=== PATIENT | male | born 1955 | race African-American/Black ===

== ENCOUNTER 2016-10-23 07:01 | Observation (INO) | payer OTHER ==
--- NOTE | 2016-10-23 07:04 | PDOC ---
History of Present Illness - General Chief Complaint: CVA/TIA Stated Complaint: WEAKNESS,DIZZY, HX STROKE Time Seen by Provider: 10/23/16 07:04 History Source: Patient Exam Limitations: No Limitations - History of Present Illness Initial Comments: 10/23/16 07:18 60y F hx of htn, hl, cva sp TPA presents with concern for stroke. The patient felt fine this weekend, and he woke up at approx 6am, and tookhis meds, he felt alittle nauseus, mild L hand weakness, and noticed that he stumbled this morning. The pt denies any other associated headache, vision changes, palpitations, cp, abd pain, back pain, neck pain. The ptnotes the symptoms were better by the time he arrived and his examination upon arrival seemedr esolved. The patient denies any recent illness, feve/chills, diarrhea, dysuria. pt took 81mg ASA this morning PMD: [email or web address] Past History - Past Medical History Allergies/Adverse Reactions: Allergies Allergy/AdvReac Type Severity Reaction Status Date / Time No Known Allergies Allergy Verified 06/09/16 07:10 Home Medications: Ambulatory Orders Aspirin [ASA -] 81 mg PO PRN 06/09/16 Losartan 50Mg/Hctz 12.5MG [Hyzaar -] 1 tab PO DAILY 06/09/16 Atorvastatin Ca [Lipitor] 10 mg PO HS 10/23/16 Finasteride 5 mg PO DAILY 10/23/16 Vitamin D - 50,000 PO WEEKLY 10/23/16 Anemia: No Asthma: No Cancer: No Cardiac Disorders: No CVA: No COPD: No CHF: No Dementia: No Diabetes: No GI Disorders: No Disorders: No (FREQUENCY) HTN: No Hypercholesterolemia: No Liver Disease: No Seizures: No Thyroid Disease: No - Surgical History Abdominal Surgery: No Appendectomy: No Cardiac Surgery: No Cholecystectomy: No Lung Surgery: No Neurologic Surgery: No Orthopedic Surgery: No - Psycho/Social/Smoking Cessation Hx Anxiety: No Suicidal Ideation: No Smoking History: Never smoked Have you smoked in the past 12 months: No Hx Alcohol Use: No Drug/Substance Use Hx: No Substance Use Type: None Hx Substance Use Treatment: No Review of Systems - Review of Systems Able to Perform ROS?: Yes Comments:: 10/23/16 07:22 Constitutional - no reported Fever, Chills, HEENT: no reported vision changes, sore throat Respiratory: no reported cough, sob, hemoptysis Cardiac: no reported chest pain, palpitations, light headedness, leg swelling Abd/GI: no reported abd pain, nausea, vomiting, blood per rectum, melena, diarrhea : no reported dysuria, frequency, discharge Musculskelatal - no reported back pain, joint swelling skin - no reported bruising, erythema, rash neurological: +left arm weakness, no reported headache, numbness, focal weakness , tingling, ataxia, hematologic: no reported anemia, easy bruising, easy bleeding *Physical Exam - Physical Exam Comments: 10/23/16 07:24 GENERAL: The patient is awake, alert, and fully oriented, Nontoxic - in no acute distress. HEAD: Normocephalic, atraumatic. EYES: extraocular movements intact, sclera anicteric, conjunctiva clear. ENT: Normal voice, Moist mucous membranes. NECK: Normal range of motion, supple LUNGS: Breath sounds equal, clear to auscultation bilaterally. No wheezes, no rhonchi, no rales. HEART: Regular rate and rhythm, normal S1 and S2 without murmur, rub or gallop. ABDOMEN: Soft, nontender, normoactive bowel sounds. No guarding, no rebound. . No CVA tenderness EXTREMITIES: Normal range of motion, no edema. No clubbing or cyanosis. No cords, erythema, or tenderness. NEUROLOGICAL: No facial assymetry, Normal speech, PSYCH: Normal mood, normal affect. SKIN: Warm, Dry, normal turgor, NEURO: Mental status: The patient is oriented x3. Cranial nerves: Cranial nerves II through XII are intact Motor: The upper extremities are 5 over 5 in all muscle groups. The lower extremities are 5 over 5 in all muscle groups. Negative pronator drift Sensation: Sensation is intact to light touch throughout. romberg negative Cerebellar: Rwapko-goqhrd-sxmd is normal in both upper extremities. Heel-knee- santos is normal in both lower extremities. rapid alternating movements are normal. Reflexes: 2+ and symmetric in the upper and lower extremities. Gait: Normal. Heel and toe walking are normal. Tandem gait is normal. NIH Stroke Scale - Last Known Well Date/Time & Onset Date Last Known Well: 10/23/16 Time Last Known Well: 06:00 - Initial Evaluation Level of consciousness: Alert Ask patient the month and their age: Answers both correctly Ask patient to open & close eyes; make fist and let go: Obeys both correctly Best gaze (horizontal eye movement): Normal Visual field testing: No visual field loss Facial paresis (Show teeth/raise eyebrows/close eyes tight): Normal symmetrical movement Motor Function: Left Arm: Normal Motor Function: Right Arm: Normal (extends arm 90 (or 45) degrees for 10 seconds without drift Motor Function: Left Leg: Normal (extends leg 30 degrees for 5 seconds without drift) Motor Function: Right Leg: Normal (extends leg 30 degrees for 5 seconds without drift) Limb Ataxia: No ataxia Sensory(Use pinprick test arms,legs,trunk,face/side to side): Normal Best language (Describe picture, name items, read sentences): No Aphasia Dysarthria (read several words): Normal articulation Extinction and Inattention: No abnormality - Total Score NIH Stroke Scale Score: 0 tPA Exclusion Checklist 0-3hr - Time Elapsed Date last known well: 10/23/16 Time last known well: 06:00 Elaspsed time: 1 Day(s) and 3 Hour(s) and 14 Minutes - Thrombolytic Therapy Candidate Is the patient eligible for Thrombolytic Therapy?: No - Relative Exclusion Criteria 0-3h Rapid improvement: Yes - Ineligibility reason(s) Reasons No tPA given: See reason(s) noted above Heart Score/ECG Review - ECG Impressions Comment:: 10/23/16 07:25 Twelve-lead EKG was performed and reviewed by me. There is normal sinus rhythm with a normal rate. Rate of 69 The axis is normal. The intervals are normal. There is normal R wave progression There are no ST or T wave abnormalities. Critical Care Time/MDM Note - Medical Decision Making Note: 10/23/16 07:25 60yM hx of dm, hl, htn, cva s/p tpa presents with concern for posible stroke like symptmos with waekness/nausea after he took meds this morning that resolved by the time he go to the ED. pts exam unremarkable and NIHSS is approx 0 not TPA candidate due to rapidlyimproving symptoms pt noted tachycardic on arrival mildly hypertensive head ct/stroke workup initiated ekg to r/o arrythmia pt placed on desk monitor will give ASA if ct head negative 10/23/16 08:[address] negativefor acute cva or changes, but +chronic right sided changes/cva labs reviewed noted for mild hypomagnesemia, hypokalemia will place in observation for suspected TIA pt given ASA, k and mg repleted case dw dr. benson, requests observation under hospitalist service as she does not admit to [facility] pts neurologist from month Case discussed in detail with admitting physician including history, physical exam and ancillary studies. Admitting physician has assumed care for the patient, will follow all pending diagnostics and will complete the evaluation and treatment. 10/23/16 09:[address] Mares (Neuro) - pts neurologist is dr. Villanueva ([facility]) will see pt later today CRITICAL CARE DOCUMENTATION: I spent ~35 minutes of Critical Care time, excluding separately billable procedures, involving high complexity decision making to assess, manipulate and support vital system function(s) to treat single or multiple vital organ system failure and/or to prevent further life threatening deterioration of the patient' s condition. Discharge Disposition - Diagnosis Hypokalemia, Hypomagnesemia TIA (transient ischemic attack) Qualifiers: Transient cerebral ischemia type: unspecified Qualified Code(s): G45.9 - Transient cerebral ischemic attack, unspecified - Discharge Dispostion Admit: Yes
[2016-10-23 07:31] LABS: BASOPHIL 2.5 % (0-2.0); EOSINOPHIL 1.8 % (0-4.5); MCHC 33.2 g/dl (32.0-35.9); MEAN CELL VOLUME 93.3 fl (80-96); MEAN PLT VOLUME 8.7 fl (7.5-11.1); NEUTROPHILS 64.2 % (42.8-82.8); PLATELET COUNT 318 K/MM3 (134-434); RDW 13.4 % (11.9-15.9); WHITE BLOOD COUNT 7.1 K/mm3 (4.0-10.8)
[2016-10-23 07:38] LABS: INR 1.12 (0.82-1.09); PROTHROMBIN TIME (PATIENT) 12.5 SEC (10.2-13.0)
[2016-10-23 07:39] LABS: ALBUMIN 4.1 g/dl (3.5-5.0); ALK PHOS 65 U/L (32-92); ANION GAP 7 (8-16); BILIRUBIN,TOTAL 0.6 mg/dl (0.2-1.0); CO2 30 mmol/L (22-28); CREATININE 1.5 mg/dl (0.6-1.3); GLUCOSE,RANDOM 115 mg/dl (74-106); MAGNESIUM 1.7 mg/dL (1.8-2.4); PHOSPHOROUS 3.3 mg/dl (2.5-4.6); SGOT/AST 27 U/L (10-42); SGPT/ALT 47 U/L (10-40); TOT PROT 7.2 g/dl (6.4-8.3)
[2016-10-23] MEDS ORDERED: MAGNESIUM SULF 50% (8.12 MEQ/2 ML-1 GM VIAL) IVPB ONE (08:04)
[2016-10-23] MEDS ORDERED: POTASSIUM CHLORIDE TABS 20 MEQ TABLET.ER (FP) PO ONE ×2 (08:04→08:26)
[2016-10-23] MEDS ORDERED: ASPIRIN 81 MG CHEWABLE TABLETS PO ONE (08:25)
[2016-10-23] MEDS ORDERED: ASPIRIN 81 MG CHEWABLE TABLETS ONE (08:36)
[2016-10-23 09:13] LABS: PH,URINE 6.5 (4.5-8); URINE APPEARANCE Clear; URINE BILIRUBIN Negative (NEGATIVE); URINE GLUCOSE (UA) Negative (NEGATIVE); URINE KETONE Negative (NEGATIVE); URINE LEUK ESTERASE Negative (NEGATIVE); URINE NITRITE Negative (NEGATIVE); URINE PROTEIN Negative (NEGATIVE); URINE UROBILINOGEN 0.2 E.U/dl (0.2-1.0)
[2016-10-23 09:15] LABS: URINE BLOOD TRACE (NEGATIVE); URINE COLOR YELLOW
[2016-10-23 10:18] LABS: URINE RBC 0-3 /hpf (0-3)
[2016-10-23 10:19] LABS: URINE WBC 0-3 (3-5)
[2016-10-23 10:23] LABS: THYROID STIMULATING HORMONE 1.95 uIU/ml (0.358-3.74)
[2016-10-23 10:30] LABS: URINE MARIJUANA THC NEGATIVE ng/ml (CUTOFF=50)
--- NOTE | 2016-10-23 10:54 | HP ---
[id number] Dr Walden ([facility]) Ophthalmic Surgical Assistant: Dr Hallman HISTORY OF PRESENT ILLNESS: patient is a 60 y/o female with a past medical history of HTN, BPH, hyperlipidemia, CVA (05/26) s/p TPA. Patient reports that he awoke today (10/23) at 0600 and after taking his AM medications, he was ambulating at home. Upon ambulating he feel nausea, with mild left arm weakness and unsteady gait. As a result, he sought evaluation in the emergency department. Patient reports he symptoms resolved soon after arrival. In addition, patient has a history of a CVA in 05/26, was evaluated at this hospital's emergency department given TPA and transferred to [facility]. He reports a one week at [facility], a KRISTIN was performed which was negative as per the patient. He reports residual speech and fine motor deficits. As a result, he is enrolled at [facility] three times a week for speech and occupational therapy. 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 Smoking: none Alcohol: none Drugs: none Allergies No Known Allergies Allergy (Verified 06/09/16 07:10) HOME MEDICATIONS: Home Medications Medication Instructions Recorded Aspirin [ASA -] 81 mg PO PRN 06/09/16 Losartan 50Mg/Hctz 12.5MG [Hyzaar 1 tab PO DAILY 06/09/16 -] Atorvastatin Ca [Lipitor] 10 mg PO HS 10/23/16 Finasteride 5 mg PO DAILY 10/23/16 REVIEW OF SYSTEMS CONSTITUTIONAL: Absent: fever, chills, diaphoresis, generalized weakness, malaise, loss of appetite, weight change HEENT: Absent: rhinorrhea, nasal congestion, throat pain, throat swelling, difficulty swallowing, mouth swelling, ear pain, eye pain, visual changes CARDIOVASCULAR: Absent: chest pain, syncope, palpitations, irregular heart rate, lightheadedness , peripheral edema RESPIRATORY: Absent: cough, shortness of breath, dyspnea with exertion, orthopnea, wheezing, stridor, hemoptysis GASTROINTESTINAL: Present: nausea Absent: abdominal pain, abdominal distension, vomiting, diarrhea, constipation, melena, hematochezia GENITOURINARY: Absent: dysuria, frequency, urgency, hesitancy, hematuria, flank pain, genital pain MUSCULOSKELETAL: Absent: myalgia, arthralgia, joint swelling, back pain, neck pain SKIN: Absent: rash, itching, pallor HEMATOLOGIC/IMMUNOLOGIC: Absent: easy bleeding, easy bruising, lymphadenopathy, frequent infections ENDOCRINE: Absent: unexplained weight gain, unexplained weight loss, heat intolerance, cold intolerance NEUROLOGIC: Present: unsteady gait Absent: headache, focal weakness or paresthesias, dizziness, seizure, mental status changes, bladder or bowel incontinence PSYCHIATRIC: Absent: anxiety, depression, suicidal or homicidal ideation, hallucinations. PHYSICAL EXAMINATION Vital Signs - 24 hr 10/23/16 10:03 Temperature 97.9 F Pulse Rate [ 60 Left] Respiratory 17 Rate Blood Pressure 120/91 [Right Arm] O2 Sat by Pulse 100 Oximetry (%) GENERAL: Awake, alert, and fully oriented, in no acute distress. HEAD: Normal with no signs of trauma. EYES: Pupils equal, round and reactive to light, extraocular movements intact, sclera anicteric, conjunctiva clear. No lid lag. EARS, NOSE, THROAT: Ears normal, nares patent, oropharynx clear without exudates. dry mucous membranes. NECK: Normal range of motion, supple without lymphadenopathy, JVD, or masses. LUNGS: Breath sounds equal, clear to auscultation bilaterally. No wheezes, and no crackles. No accessory muscle use. HEART: Regular rate and rhythm, normal S1 and S2 without murmur, rub or gallop. ABDOMEN: Soft, nontender, not distended, normoactive bowel sounds, no guarding, no rebound, no masses. No hepatomegaly or splenomegaly. MUSCULOSKELETAL: Normal range of motion at all joints. No bony deformities or tenderness. No CVA tenderness. UPPER EXTREMITIES: 2+ pulses, warm, well-perfused. No cyanosis. No clubbing. No peripheral edema. LOWER EXTREMITIES: 2+ pulses, warm, well-perfused. No calf tenderness. No peripheral edema. NEUROLOGICAL: Cranial nerves II-XII intact. Normal speech. Normal gait. upper extremities 5/5 lower extremities 5/5 PSYCHIATRIC: Cooperative. Good eye contact. Appropriate mood and affect. SKIN: Warm, dry, normal turgor, no rashes or lesions noted, normal capillary refill. ASSESSMENT/PLAN: 1) neuro: r/o TIA - ct of head reviewed, will order CTA of head/neck w/vasopague (due to IVETTE) - case discussed with Dr Aguiar (neurology) will evaluate patient today - q4h neuroassessment - continous cardiac monitoring, he was evaluated by cardiology (Ryan) post discharge, KRISTIN negative as per patient - continue ASA daily 2) cardiac hypertension - continue loosartan - b/p at goal hyperlipidemia - continue lipitor - pending lipid profile r/o acs - troponin x 1 wnl, pending 2nd and third - ekg in ED, NSR, no change from prior, repeat ekg in am 3) BPH - continue finasteride 4) nephrology CKD - creatine 1.5, pt appears dehydrated on exam, IV hydration after ct scan, repeat bmp at 1800 - hold hctz F/E/N - low sodium diet - replete magnesium and magnesium PPX - oob - scd/aaron - heparin dispo: requires 24 hour telemetry observation Problem List - Problem (1) TIA (transient ischemic attack) Code(s): G45.9 - TRANSIENT CEREBRAL ISCHEMIC ATTACK, UNSPECIFIED Qualifiers: Transient cerebral ischemia type: unspecified Qualified Code(s): G45.9 - Transient cerebral ischemic attack, unspecified (2) Cerebrovascular accident (CVA) Code(s): I63.9 - CEREBRAL INFARCTION, UNSPECIFIED Qualifiers: CVA mechanism: unspecified Qualified Code(s): I63.9 - Cerebral infarction, unspecified Visit type - Emergency Visit Emergency Visit: Yes ED Registration Date: 10/23/16 Care time: The patient presented to the Emergency Department on the above date and was hospitalized for further evaluation of their emergent condition. - New Patient This patient is new to me today: Yes Date on this admission: 10/23/16 - Critical Care Critical Care patient: Yes Total Critical Care Time (in minutes): 45 Critical Care Statement: The care of this patient involved high complexity decision making to prevent further life threatening deterioration of the patient 's condition and/or to evalute & treat vital organ system(s) failure or risk of failure.
[2016-10-23 11:06] VITALS: BMI 23.7
[2016-10-23] MEDS ORDERED: LOSARTAN 50MG/HCTZ 12.5MG 1 TAB (FP) PO SCH (11:15)
[2016-10-23 12:51] LABS: CPK(DFH) 92 IU/L (38-174)
--- NOTE | 2016-10-23 13:02 | EKG ---
Test Reason : Blood Pressure : / mmHG Vent. Rate : 069 BPM Atrial Rate : 069 BPM P-R Int : 150 ms QRS Dur : 088 ms QT Int : 414 ms P-R-T Axes : 071 084 081 degrees QTc Int : 443 ms SINUS RHYTHM RSR' OR QR PATTERN IN V1 SUGGESTS RIGHT VENTRICULAR CONDUCTION DELAY POSSIBLE LEFT ATRIAL ENLARGEMENT BORDERLINE ECG NO PREVIOUS ECGS AVAILABLE Confirmed by CARLEE MILLER MD ([id number]) on 10/23/2016 1:02:13 PM Referred By: IVORY Confirmed By:CARLEE MILLER MD
[2016-10-23 13:11] LABS: TROPONIN I (DFP) < 0.03 ng/ml (0.03-0.50)
[2016-10-23] MEDS ORDERED: SODIUM CHLORIDE 1,000 ML IV STA (14:06)
[2016-10-23 19:04] LABS: CPK(DFH) 76 IU/L (38-174)
[2016-10-23 19:15] LABS: ANION GAP 5 (8-16); CALCIUM 8.1 mg/dl (8.4-10.2); CO2 28 mmol/L (22-28); CREATININE 1.5 mg/dl (0.6-1.3); GLUCOSE,RANDOM 104 mg/dl (74-106)
[2016-10-23 19:24] LABS: TROPONIN I (DFP) < 0.03 ng/ml (0.03-0.50)
[2016-10-23] MEDS ORDERED: ATORVASTATIN CA 10 MG TABLET (FP) PO SCH (22:00)
--- NOTE | 2016-10-23 23:49 | CON.NEURO ---
Consult Consult Specialty:: Neurology-Matthieu JOINER Reason for Consultation:: ??TIA - History of Present Illness Chief Complaint: "I had unsteadiness and slight weakness on the left side". History of Present Illness: patient is a 60 y/o gentleman with a past medical history of HTN, BPH, hyperlipidemia, CVA (05/26) when he presented with left hemiparesis and left sided field cut, was given i/v TPA and neurologic deficits improved with rehab at [facility].. Patient reports that he awoke today (10/23) at 0600 and after taking his AM medications upon ambulating he felt nausea, with mild left arm weakness and unsteady gait:this lasted for a few minutes only.. As a result, he sought evaluation in the emergency department. Patient reports his symptoms resolved soon after arrival at this hospital. He reports a KRISTIN was done upon his last admission at [facility], he is enrolled at [facility] three times a week for speech and occupational therapy. He denies numbness, visual field deficit, vertigo, double vision and all other neurologic symptoms. ER course was notable for: (1) ct of head: no acute pathology, microvascular changes (2) chest xray: no infilitrates no effusions noted (3) ekg nsr normal axis - History Source History Provided By: Patient - Past Medical History Psych: Yes: Depression (sad affect, impaired libido x > 1 year with no erectile dysfunction. 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 History of Recent Travel: No Home Medications - Allergies Allergies/Adverse Reactions: Allergies Allergy/AdvReac Type Severity Reaction Status Date / Time No Known Allergies Allergy Verified 06/09/16 07:10 - Home Medications Home Medications: Ambulatory Orders Aspirin [ASA -] 81 mg PO PRN 06/09/16 Losartan 50Mg/Hctz 12.5MG [Hyzaar -] 1 tab PO DAILY 06/09/16 Atorvastatin Ca [Lipitor] 10 mg PO HS 10/23/16 Finasteride 5 mg PO DAILY 10/23/16 Vitamin D - 50,000 PO WEEKLY 10/23/16 Family Disease History - Family Disease History Family Disease History: Other: Son (biliary atresia age 1 at [facility] about 20 years prior) Physical Exam-Neuro Vital Signs: Vital Signs Temperature 97.8 F 10/23/16 20:45 Pulse Rate 64 10/23/16 20:45 Respiratory Rate 18 10/23/16 20:45 Blood Pressure 108/74 10/23/16 20:45 O2 Sat by Pulse Oximetry (%) 98 10/23/16 14:28 Labs: CBC, BMP 10/23/16 18:35 INR, PTT INR 1.12 (0.82-1.09) 10/23/16 07:10 - Neuro Exam Dominant Hand: Right Cranial Nerves II-XII Intact: No (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 Slight old left cent. facial.) DTR's: 2+ Left Bicep, 2+ Right Bicep, 2+ Left Tricep, 2+ Right Tricep, 2+ Left Brachioradialis, 2+ Right Brachioradialis, 2+ Left Achilles, 2+ Right Achilles Babinski: Absent Response to light touch: Normal NIH Stroke Scale - Total Score NIH Stroke Scale Score: 0 Imaging - Results Cat Scan: Report Reviewed (Old right frontal/parietal and centrum infarct) Other: Report Reviewed (CTA brain/neck with patent vessels.) Assessment/Plan Pt. with transient weakness in same distribution as his previous infarct. 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 Suggest: 1) Can switch ASA to Plavix 75 mg daily but pt. wishes to d/w Dr. Myers his neurologist at [facility]. Cont. ASA 81mg daily for now. I will also call Dr. Myers tomorrow am to discuss. He will call Dr. Myers for an appointment. 2) Would cont. speech therapy at [facility]. Thank you, Maite Sommers MD [phone]
[2016-10-24 04:12] VITALS: TEMP 97.7
[2016-10-24 08:48] LABS: BASOPHIL 0.6 % (0-2.0); EOSINOPHIL 1.4 % (0-4.5); MCH 31.9 pg (25.7-33.7); MCHC 34.4 g/dl (32.0-35.9); MEAN CELL VOLUME 92.8 fl (80-96); MEAN PLT VOLUME 8.6 fl (7.5-11.1); NEUTROPHILS 71.8 % (42.8-82.8); PLATELET COUNT 274 K/MM3 (134-434); RDW 13.7 % (11.9-15.9); WHITE BLOOD COUNT 6.7 K/mm3 (4.0-10.8)
[2016-10-24 09:03] LABS: ALK PHOS 70 U/L (32-92); ANION GAP 6 (8-16); BILIRUBIN,TOTAL 0.7 mg/dl (0.2-1.0); CHOLESTEROL 139 mg/dl; CO2 29 mmol/L (22-28); CREATININE 1.4 mg/dl (0.6-1.3); GLUCOSE,RANDOM 102 mg/dl (74-106); MAGNESIUM 1.9 mg/dL (1.8-2.4); PHOSPHOROUS 2.5 mg/dl (2.5-4.6); SGOT/AST 25 U/L (10-42); SGPT/ALT 45 U/L (10-40); TOT PROT 6.9 g/dl (6.4-8.3)
[2016-10-24 09:15] LABS: COCKROFT - GAULT NT
[2016-10-24 09:41] LABS: INR 1.12 (0.82-1.09); PROTHROMBIN TIME (PATIENT) 12.5 SEC (10.2-13.0)
[2016-10-24 09:51] VITALS: BP 135/82; PULSE 84
[2016-10-24] MEDS ORDERED: ASPIRIN 81 MG CHEWABLE TABLETS PO SCH (10:00)
[2016-10-24] MEDS ORDERED: FINASTERIDE 5 MG TABLET (FP) PO SCH (10:00)
[2016-10-24] MEDS ORDERED: LOSARTAN POTASSIUM 50 MG TABLET (FP) PO SCH (10:00)
--- NOTE | 2016-10-24 11:18 | DS ---
Physical Exam: SUBJECTIVE: Patient seen and examined OBJECTIVE: Vital Signs Period Temp Pulse Resp BP Sys/Owens Pulse Ox Last 24 Hr 97.7 F-98.7 F 58-84 17-19 108-139/74-91 98-100 PHYSICAL EXAM GENERAL: The patient is awake, alert, and fully oriented, in no acute distress. HEAD: Normal with no signs of trauma. EYES: PERRL, extraocular movements intact, sclera anicteric, conjunctiva clear. ENT: Ears normal, nares patent, oropharynx clear without exudates, moist mucous membranes. NECK: Trachea midline, full range of motion, supple. LUNGS: Breath sounds equal, clear to auscultation bilaterally, no wheezes, no crackles, no accessory muscle use. HEART: Regular rate and rhythm, S1, S2 without murmur, rub or gallop. ABDOMEN: Soft, nontender, nondistended, normoactive bowel sounds, no guarding, no rebound, no hepatosplenomegaly, no masses. EXTREMITIES: 2+ pulses, warm, well-perfused, no edema. NEUROLOGICAL: Cranial nerves II through XII grossly intact. Normal speech, gait not observed. PSYCH: Normal mood, normal affect. SKIN: Warm, dry, normal turgor, no rashes or lesions noted. LABS Laboratory Results - last 24 hr 10/23/16 10/23/16 10/23/16 18:35 18:35 Unknown WBC RBC Hgb Hct MCV MCHC RDW Plt Count MPV Neutrophils % Lymphocytes % Monocytes % Eosinophils % Basophils % INR PTT (Actin FS) Sodium 139 Potassium 4.0 D Chloride 106 Carbon Dioxide 28 Anion Gap 5 L BUN 24 H Creatinine 1.5 H Creat Clearance w eGFR Random Glucose 104 Calcium 8.1 L Phosphorus Magnesium Total Bilirubin AST ALT Alkaline Phosphatase Creatine Kinase 76 Cancelled Troponin I < 0.03 L Cancelled Total Protein Albumin Triglycerides Cholesterol HDL Cholesterol 10/24/16 10/24/16 10/24/16 07:45 07:45 07:45 WBC 6.7 RBC 4.88 Hgb 15.6 Hct 45.2 MCV 92.8 MCHC 34.4 RDW 13.7 Plt Count 274 MPV 8.6 Neutrophils % 71.8 Lymphocytes % 18.5 Monocytes % 7.7 Eosinophils % 1.4 Basophils % 0.6 INR 1.12 PTT (Actin FS) 30.0 Sodium 139 Potassium 4.6 Chloride 104 Carbon Dioxide 29 H Anion Gap 6 L BUN 21 H Creatinine 1.4 H Creat Clearance w eGFR 51.87 Random Glucose 102 Calcium 9.0 Phosphorus 2.5 D Magnesium 1.9 Total Bilirubin 0.7 AST 25 ALT 45 H Alkaline Phosphatase 70 Creatine Kinase Troponin I Total Protein 6.9 Albumin 4.0 Triglycerides 58 Cholesterol 139 HDL Cholesterol 53 HOSPITAL COURSE: Date of Admission:10/23/16 Date of Discharge: 10/24/16 Minutes to complete discharge: 45 Discharge Summary Reason For Visit: TIA/HYPOKALEMIA/HYPOMAGNESEMI Current Active Problems Hypokalemia (Acute) Hypomagnesemia (Acute) TIA (transient ischemic attack) (Acute) - Home Medications Comprehensive Discharge Medication List: Ambulatory Orders Aspirin [ASA -] 81 mg PO PRN 06/09/16 Losartan 50Mg/Hctz 12.5MG [Hyzaar -] 1 tab PO DAILY 06/09/16 Atorvastatin Ca [Lipitor] 10 mg PO HS 10/23/16 Finasteride 5 mg PO DAILY 10/23/16 Vitamin D - 50,000 PO WEEKLY 10/23/16 Problem List - Problems (1) TIA (transient ischemic attack) Code(s): G45.9 - TRANSIENT CEREBRAL ISCHEMIC ATTACK, UNSPECIFIED Qualifiers: Transient cerebral ischemia type: unspecified Qualified Code(s): G45.9 - Transient cerebral ischemic attack, unspecified (2) Cerebrovascular accident (CVA) Code(s): I63.9 - CEREBRAL INFARCTION, UNSPECIFIED Qualifiers: CVA mechanism: unspecified Qualified Code(s): I63.9 - Cerebral infarction, unspecified This patient is new to me today: No Emergency Visit: Yes ED Registration Date: 10/23/16 Care time: The patient presented to the Emergency Department on the above date and was hospitalized for further evaluation of their emergent condition. Critical Care patient: No - Discharge Referral Referred to [facility] Med P.C.: No
[2016-10-24 16:59] LABS: LDL CHOLESTEROL (ONLY SJRH) 75 mg/dL (5-100)
[2016-10-24 19:07] LABS: THYROID STIMULATING HORMONE 2.16 uIU/ml (0.358-3.74)
== END 2016-10-24 12:17 | disposition home or self-care (01) ==
LOC: FER 07:01 → FM/S 09:37
PROVIDERS: ADMIT Internal Medicine; ATTEND Nurse Practitioner Family
PROC: 3E033GC Introduction of Other Therapeutic Substance into Peripheral Vein, Percutaneous Approach (ICD-10-PCS; principal; 2016-10-23)
PROC: 3E0337Z Introduction of Electrolytic and Water Balance Substance into Peripheral Vein, Percutaneous Approach (ICD-10-PCS; 2016-10-23)
DX: G45.9 Transient cerebral ischemic attack, unspecified (principal); E87.6 Hypokalemia; E83.42 Hypomagnesemia; I10 Essential (primary) hypertension; E78.00 Pure hypercholesterolemia, unspecified; Z79.82 Long term (current) use of aspirin; N40.0 Benign prostatic hyperplasia without lower urinary tract symptoms
CPT/HCPCS: 36415; 70450-TC; 70496-TC; 70498-TC; 71010-TC; 80048; 80053; 80061; 80307; 81003; 81015; 82550; 82607; 83036; 83721; 83735; 84100; 84443; 84484; 85025; 85610; 85730; 86850; 86900; 86901; 93005; 99285-25; G0378

== ENCOUNTER 2016-11-13 07:38 | Day surgery (SDC) | payer OTHER ==
[2016-11-13 08:03] VITALS: BMI 24.1
[2016-11-13] MEDS ORDERED: ePHEDrine SULFATE 50 MG/1 ML AMPULE ONE (08:50)
[2016-11-13 09:17] VITALS: TEMP 97.7
[2016-11-13 09:48] VITALS: PULSE 60
[2016-11-13 10:25] VITALS: BP 125/73
--- NOTE | 2016-11-14 12:42 | PATH ---
Surgical Pathology Report Patient Name: NANCY WHITE [facility]. Rec. #: [id number] /Age/Gender: 1955 (Age: 60) / M Account: [id number] Location: U-ENDOSCOPY Taken: 11/13/2016 Received: 11/13/2016 Reported: 11/14/2016 Physicians: Nolan Mustafa M.D. Specimen(s) Received BX POLYP SIGMOID Clinical History Polyp surveillance Sigmoid polyp and diverticulosis Final Diagnosis COLON, SIGMOID, POLYP, BIOPSY: SERRATED ADENOMA. Electronically Signed Ezequiel Tejeda M.D. Gross Description Received in formalin, labeled "biopsy sigmoid polyp" are 2 bates, irregular portions of soft tissue averaging 0.2 cm in greatest dimension. The specimens are submitted in toto in one cassette. 11/13/201611/13/2016
== END 2016-11-13 10:25 | disposition home or self-care (01) ==
LOC: JASU-ENDO 07:38
PROVIDERS: ATTEND Internal Medicine Gastroenterology
PROC: 0DBN8ZX Excision of Sigmoid Colon, Via Natural or Artificial Opening Endoscopic, Diagnostic (ICD-10-PCS; principal; 2016-11-13 08:30)
DX: Z12.11 Encounter for screening for malignant neoplasm of colon (principal); Z86.010 Personal history of colon polyps; D12.5 Benign neoplasm of sigmoid colon; K57.30 Diverticulosis of large intestine without perforation or abscess without bleeding
CPT/HCPCS: 88305-TC

== ENCOUNTER 2018-01-05 21:14 | Emergency (ER) | payer OTHER ==
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
[2018-01-05 21:22] VITALS: BP 126/87; PULSE 70; TEMP 97.9; BMI 24.1
== END 2018-01-05 22:32 | disposition home or self-care (01) ==
LOC: FER 21:14
PROC: 2W3KX1Z Immobilization of Left Finger using Splint (ICD-10-PCS; principal; 2018-01-05)
DX: S62.617A Displaced fracture of proximal phalanx of left little finger, initial encounter for closed fracture (principal); X58.XXXA Exposure to other specified factors, initial encounter; Y93.89 Activity, other specified; Y92.9 Unspecified place or not applicable
CPT/HCPCS: 73130-TC-LR-FY; 99282-25

== ENCOUNTER 2020-04-26 12:29 | Emergency (ER) | payer OTHER | END 2020-04-26 12:49 | disposition home or self-care (01) | LOC: JVIRT 12:29 | DX: Z11.59 Encounter for screening for other viral diseases (principal) | CPT/HCPCS: C9803; Q3014-GT; U0003 ==

== ENCOUNTER 2023-05-25 04:44 | Day surgery (SDC) | payer OTHER ==
[2023-05-23 15:57] VITALS: BMI 23.7
[2023-05-25 11:59] VITALS: TEMP 97.2
[2023-05-25 13:05] VITALS: BP 138/90; PULSE 55; RESP 14
== END 2023-05-25 13:25 | disposition home or self-care (01) ==
LOC: JASU-ENDO 04:44
PROVIDERS: ATTEND Internal Medicine Gastroenterology
PROC: 0DB98ZX Excision of Duodenum, Via Natural or Artificial Opening Endoscopic, Diagnostic (ICD-10-PCS; 2023-05-25)
PROC: 0DB68ZX Excision of Stomach, Via Natural or Artificial Opening Endoscopic, Diagnostic (ICD-10-PCS; 2023-05-25)
PROC: 0DB48ZX Excision of Esophagogastric Junction, Via Natural or Artificial Opening Endoscopic, Diagnostic (ICD-10-PCS; 2023-05-25)
PROC: 0DBH8ZX Excision of Cecum, Via Natural or Artificial Opening Endoscopic, Diagnostic (ICD-10-PCS; principal; 2023-05-25 12:00)
DX: Z12.11 Encounter for screening for malignant neoplasm of colon (principal); D12.0 Benign neoplasm of cecum; K57.30 Diverticulosis of large intestine without perforation or abscess without bleeding; K64.8 Other hemorrhoids; K31.89 Other diseases of stomach and duodenum; K44.9 Diaphragmatic hernia without obstruction or gangrene; K29.50 Unspecified chronic gastritis without bleeding; K31.9 Disease of stomach and duodenum, unspecified; K21.00 Gastro-esophageal reflux disease with esophagitis, without bleeding; Z86.010 Personal history of colon polyps; R19.5 Other fecal abnormalities; Z80.0 Family history of malignant neoplasm of digestive organs
CPT/HCPCS: 88305-TC; 88342-TC